=== PATIENT | male | born 1985 | race Caucasian/White ===

== ENCOUNTER → 2021-02-01 09:36 | Outpatient (CLI) | payer MEDICARE, SELFPAY | PROVIDERS: Referring Provider Physician Assistant; Visit Provider Physician Assistant | DX: U07.1 COVID-19 (principal); Z11.52 Encounter for screening for COVID-19 | CPT/HCPCS: 87635; U0005; U0003 ==

== ENCOUNTER 2021-12-02 10:46 | Inpatient (IN) | payer OTHER, SELFPAY ==
[2021-12-02 10:47] VITALS: BP 136/82; PULSE 84; RESP 16; TEMP 36.6; O2SAT 98; BMI 34.0
--- NOTE | 2021-12-02 11:01 | EX.ED.DYSGE1 ---
HPI <LAUREN Hernandez - Last Filed: 12/02/21 12:59> History of Present Illness Chief Complaint: Abd Pain Narrative Narrative: 36-year-old male with no signal medical history other than depression presents the emerge apartment left lower quadrant abdominal pain that started last evening. Patient states the pain is worse with touching or palpation, he has worsening pain with any sort of walking or movement. He does state to have diarrhea however no nausea or vomiting. Patient denies any fevers however states to have subjective chills. Denies any recent antibiotic use, sick contacts. PFSH <LAUREN Hernandez - Last Filed: 12/02/21 12:59> [facility] Medical History Anxiety Depression Smoker Home Medications duloxetine 60 mg capsule,delayed release 60 mg PO DAILY depression 12/02/21 [History Last Taken 12/01/21] ibuprofen 200 mg tablet 800 mg PO DAILY PRN Pain 12/02/21 [History Last Taken 12/01/21] varenicline 1 mg tablet 1 mg PO BID smoking cessation 12/02/21 [History Last Taken 12/01/21] Allergy/AdvReac Type Severity Reaction Status Date / Time naproxen [From Aleve] Allergy Unknown Unknown Verified 11/24/19 12:34 Social History (Updated 11/24/19 @ 14:01 by Bina NESS, THI) Smoking Status: Current every day smoker tobacco type: cigarettes alcohol intake: current alcohol intake frequency: a few times a week Alcohol type: beer ROS <LAUREN Hernandez - Last Filed: 12/02/21 12:59> ROS ED ROS Narrative Constitutional: Negative for fever,weight loss, weakness. Positive for chills Eyes: Negative for vision loss, vision change, double vision ENT: Negative for any sore throat, ear pain, congestion Cardiovascular: Negative for any chest pain, tightness, palpitations Respiratory: Negative for any cough, sputum production, hemoptysis, dyspnea, dyspnea on exertion, orthopnea Gastrointestinal: Negative for any nausea, vomiting, diarrhea, constipation, blood in stool, blood in vomit. Positive left lower quadrant abdominal pain : Negative for any urinary frequency, dysuria, retention, blood in urine Muscle skeletal: Negative for any muscle joint pain, stiffness, myalgias, arthralgias, neck pain, back pain Neurological: Negative for any headache, syncope, numbness or tingling, dizziness Skin: Negative for any rashes, lumps, itching, abrasions, lacerations Psychiatric: Negative for any depression, anxiety, stress, suicidal ideation, homicidal ideation Hematologic: Negative for any easy bruising, excessive bruising, easy bleeding Allergies: Negative for any eczema, hives, rash EXAM <LAUREN Hernandez Last Filed: 12/02/21 12:59> Physical Exam Narrative Exam Narrative: Vital signs reviewed. HEET: Head normocephalic atraumatic, TMs clear bilaterally. Posterior pharynx is clear, moist mucous membranes. Nares clear bilaterally. Neck: Supple with no lymphadenopathy or tenderness. No signs of meningismus, negative jolt sign. Cardiac: Regular rate and rhythm no murmurs gallops or rubs, equal peripheral pulses bilaterally. Respiratory: Lungs clear to auscultation bilaterally. No chest tenderness. Abdomen: Soft, nondistended. No abdominal bruit or pulsatile masses. No hepatosplenomegaly. Patient has tenderness to left lower quadrant Extremities: No peripheral edema, no signs of gross trauma or deformity. Active full range of motion of all extremities. Neuro: Cranial nerves II through XII intact, no focal neurological deficits. Skin: Clean dry and intact with no rash, purpura, petechiae, vesicles or pustules. Backs/flank: No CVA tenderness, no midline spinal tenderness, no deformity. Psych: Normal mood and affect. No SI, HI or acute psychosis. Const Vital Signs: 12/02/21 10:47 12/02/21 12:46 Temperature 98 F Temperature Source Temporal Pulse Rate 84 82 Respiratory Rate 16 18 Blood Pressure 136/82 H 110/63 Blood Pressure Mean 100 78 Pulse Ox 98 96 Oxygen Delivery Method Room Air Room Air Image ED - Body Diagram Man: 1. Left lower quadrant abdominal pain <Dr. Leif Bocanegra DO - Last Filed: 12/02/21 14:41> Physical Exam Const Vital Signs: 12/02/21 10:47 12/02/21 12:46 Temperature 98 F Temperature Source Temporal Pulse Rate 84 82 Respiratory Rate 16 18 Blood Pressure 136/82 H 110/63 Blood Pressure Mean 100 78 Pulse Ox 98 96 Oxygen Delivery Method Room Air Room Air MDM <LAUREN Hernandez - Last Filed: 12/02/21 12:59> [facility] Lab Data Labs: Laboratory Results - last 24 hr 12/02/21 12/02/21 12/02/21 11:15 11:15 12:25 WBC 23.6 H Corrected WBC 19.1 H RBC 4.42 L Hgb 13.3 Hct 38.7 L MCV 87.6 MCH 30.1 MCHC 34.4 RDW Std Deviation 39.3 RDW Coeff of [place] 12.0 Plt Count 282 MPV 10.5 Neut % (Auto) Not Reportable Absolute Neuts (auto) 19.6 H Absolute Lymphs (auto) 1.42 Total Counted 100 Neutrophils % (Manual) 83 H Lymphocytes % (Manual) 6 L Monocytes % (Manual) 11 H Nucleated RBCs/100 WBC Not Reportable Diff Path Review May foll [employer] Platelet Estimate ADEQUATE RBC Morphology NORM C+C Sodium 139 Potassium 3.7 Chloride 106 Carbon Dioxide 28.0 Anion Gap 5 BUN 13 Creatinine 0.89 Estim Creat Clear Calc 137.14 Est GFR (MDRD) Af Amer 123 Est GFR (MDRD) Non-Af 102 BUN/Creatinine Ratio 14.6 Glucose 95 Lactic Acid 1.1 Calcium 8.9 Total Bilirubin 0.80 AST 20 ALT 52 Alkaline Phosphatase 84 Total Protein 7.5 Albumin 4.0 Globulin 3.5 Albumin/Globulin Ratio 1.1 Lipase 70 L Radiography Diagnostic Testing: Clinical Impression(s) from Imaging Studies Abdomen/Pelvis CT 12/02/21 11:25 IMPRESSION: ACUTE DIVERTICULITIS OF THE SIGMOID COLON, no evidence of perforation, no evidence of abscess collection. Electronically Signed: Jordan Jimenez MD at 12:08 EDT , ADDENDUM: 12/02/21 1240 IMPRESSION: undefined Treatment and Re-Evaluation Narrative: Patient appears well, patient appears nontoxic, vital signs are stable. Patient presents emerged part with sudden onset left lower quadrant abdominal pain, chills, is here for evaluation. Patient received a full abdominal work-up, patient CBC shows a white blood count of 19.1, patient's chemistries were unremarkable, patient CT shows acute diverticulitis of the sigmoid colon with evidence of microperforation. Patient was given IV fluids, IV Zofran, IV morphine. Patient is in a position of comfort. However due to the patient's significant diverticulitis, micro prep, patient was given Zosyn IV, he will be admitted to the hospital under Dr. Montes surgeon. Patient is agreeable with the plan, <Dr. Leif Bocanegra, DO - Last Filed: 12/02/21 14:41> [facility] Narrative Medical decision making narrative: Attending note: Patient seen and evaluated with servicer. I perform my own [id number] evaluation. I agree with the plan of work-up. Worsening left lower quadrant abdominal pain since this morning. [place] fine yesterday. Normal bowel movement yesterday. No fevers. Nausea without vomiting. No history of similar. No colonoscopies in the past. No past medical history. No history of kidney stones or diverticulitis. Exam tender lower quadrants bilaterally. Work-up notes a white count of 19,000 normal lipase and liver enzymes. CT scan patient initially read by radiology acute diverticulitis with no perforations or abscess. My review had concerning findings, I rediscussed with radiologist for reread, she does confirm there is a contained microperforation. I did add lactic acid returning normal blood cultures. Patient started on Zosyn. Discussed with surgeon patient history and findings. Will admit to surgical service. Patient and family updated. Lab Data Attestation: I reviewed the patient's lab results. Labs: Laboratory Results - last 24 hr 12/02/21 12/02/21 12/02/21 11:15 11:15 12:25 WBC 23.6 H Corrected WBC 19.1 H RBC 4.42 L Hgb 13.3 Hct 38.7 L MCV 87.6 MCH 30.1 MCHC 34.4 RDW Std Deviation 39.3 RDW Coeff of [place] 12.0 Plt Count 282 MPV 10.5 Neut % (Auto) Not Reportable Absolute Neuts (auto) 19.6 H Absolute Lymphs (auto) 1.42 Total Counted 100 Neutrophils % (Manual) 83 H Lymphocytes % (Manual) 6 L Monocytes % (Manual) 11 H Nucleated RBCs/100 WBC Not Reportable Diff Path Review May foll [employer] Platelet Estimate ADEQUATE RBC Morphology NORM C+C Sodium 139 Potassium 3.7 Chloride 106 Carbon Dioxide 28.0 Anion Gap 5 BUN 13 Creatinine 0.89 Estim Creat Clear Calc 137.14 Est GFR (MDRD) Af Amer 123 Est GFR (MDRD) Non-Af 102 BUN/Creatinine Ratio 14.6 Glucose 95 Lactic Acid 1.1 Calcium 8.9 Total Bilirubin 0.80 AST 20 ALT 52 Alkaline Phosphatase 84 Total Protein 7.5 Albumin 4.0 Globulin 3.5 Albumin/Globulin Ratio 1.1 Lipase 70 L Radiography Diagnostic Testing: Clinical Impression(s) from Imaging Studies Abdomen/Pelvis CT 12/02/21 11:25 IMPRESSION: ACUTE DIVERTICULITIS OF THE SIGMOID COLON, no evidence of perforation, no evidence of abscess collection. Electronically Signed: Jordan Jimenez MD at 12:08 EDT , ADDENDUM: 12/02/21 1240 IMPRESSION: undefined Discharge Plan Dx/Rx/DC Orders Clinical Impression: Acute diverticulitis of intestine, Leukocytosis, Abdominal pain, Perforation of sigmoid colon due to diverticulitis Disposition Disposition: Acute Care [facility]
[2021-12-02] MEDS: Ondansetron 4 MG/2 ML Vial IV ×2 (11:11→21:07)
[2021-12-02] MEDS: 0.9% Normal Saline 1,000 ML 1000 ML IV (11:11)
[2021-12-02] MEDS: Morphine 4 MG/ML Syringe IV ×2 (11:11→13:12)
[2021-12-02 11:24] LABS: Hematocrit 38.7 % (40-54); Hemoglobin 13.3 g/dL (13.0-16.5); Mean Corp Hgb Conc 34.4 g/dL (32-36); Mean Corpuscular Hgb 30.1 pg (27.0-32.0); Mean Corpuscular Volume 87.6 fL (80-94); Mean Platelet Vol. 10.5 fl (6.2-12.0); POSITIVE DIFFERENTIAL YES; Platelet Count 282 K/mm3 (150-450); RBC Distribution Width SD 39.3 fl (35.1-43.9); Red Blood Count 4.42 M/mm3 (4.6-6.2)
--- NOTE | 2021-12-02 11:25 | CT_ITS ---
INDICATION: PAIN EXAMINATION: CT ABDOMEN AND PELVIS WITH CONTRAST - CT Abdomen And Pelvis W/ Contrast Injection TECHNIQUE: Helically acquired images were obtained of the abdomen and pelvis following IV contrast. A radiation dose optimization technique was used for this scan. IV Contrast dosage and agent: 100 mL of [id number]. Oral contrast: None. COMPARISON: None. FINDINGS: LOWER CHEST: Lung bases are clear. No cardiomegaly or pericardial effusion. LIVER: Homogeneous. No focal mass. GALLBLADDER AND BILIARY TREE: No calcified gallstones. No gallbladder distension or wall edema. No intra- or extrahepatic biliary ductal dilation. PANCREAS: No focal cystic or solid mass. SPLEEN: Normal size without focal cystic or solid mass. ADRENAL GLANDS: No nodules. KIDNEYS AND URETERS: Normal renal size and position. No hydronephrosis. PERITONEUM: No ascites or free air. No other fluid collection. BOWEL: The stomach is unremarkable, fluid-filled slightly prominent loops of small bowel are visualized. Stool visualized in the large bowel, extensive stranding visualized surrounding the sigmoid colon consistent with acute diverticulitis, no evidence of perforation is visualized, no evidence of localized abscess collection is seen. The appendix is visualized and is unremarkable. LYMPH NODES: No enlarged mesenteric or retroperitoneal lymph nodes. VESSELS: Aorta is non-dilated. URINARY BLADDER: Unremarkable. REPRODUCTIVE ORGANS: No pelvic masses. ABDOMINAL WALL: Small bilateral inguinal hernia visualized, bilateral inguinal lymphadenopathy is seen. BONES: No lytic or blastic abnormality. CT/Abdomen/Pelvis W IV Cont ONLY IMPRESSION: ACUTE DIVERTICULITIS OF THE SIGMOID COLON, no evidence of perforation, no evidence of abscess collection. Electronically Signed: Jordan Jimenez MD at 12:08 EDT Reading Location ID and State: [facility] / [place] Tel , Service support ,
[2021-12-02 11:27] LABS: Differential Indicated MANUAL DIFF
[2021-12-02 11:40] LABS: ALB/GLOB Ratio 1.1 RATIO (0.9-2.4); AST(SGOT) 20 U/L (15-37); Alanine Aminotransfer ALT/SGPT 52 U/L (16-61); Alkaline Phosphatase 84 U/L (45-117); Anion Gap 5 (5-15); BUN 13 mg/dL (7-18); BUN/Creat Ratio 14.6 RATIO (10-20); Calcium,Total 8.9 mg/dL (8.5-10.1); Chloride 106 mmol/L (98-107); Creatinine, Serum 0.89 mg/dL (0.70-1.30); EST Glomerular Filtration Rate 102 mL/min (>60); Est Glom Filt Rate - Afr Amer 123 mL/min (>60); Estimated Creatinine Clearance 137.14 ml/min; Globulin 3.5 g/dL (2.2-4.2); Glucose 95 mg/dL (74-106); Lipase 70 U/L (73-393); Potassium 3.7 mmol/L (3.5-5.1); Protein, Total 7.5 g/dL (6.4-8.2); Sodium Level 139 mmol/L (136-145)
[2021-12-02 11:59] LABS: Lymphocyte 6 % (19-41); Monocyte 11 % (0-10); Neutrophil-Segmented 83 % (47-70); Platelet Estimate ADEQUATE (ADEQ); Total Cells Counted 100 (MANUAL DIFF)
[2021-12-02 12:03] LABS: Corrected WBC 19.1 K/mm3 (4.4-11.0)
[2021-12-02 12:04] LABS: Red Cell Morphology NORM C+C NORMAL (NORM C&C)
[2021-12-02 12:15] LABS: Absolute Lymphocyte Count 1.42 X10^3/uL (0.83-4.51); Absolute Neutrophil Count 19.6 X10^3/uL (2.0-7.7); White Blood Count 23.6 K/mm3 (4.4-11.0)
[2021-12-02 12:46] VITALS: BP 110/63; PULSE 82; RESP 18; O2SAT 96
[2021-12-02 13:05] LABS: Lactic Acid 1.1 mmol/L (0.4-1.9)
[2021-12-02 13:12] VITALS: BP 110/63; PULSE 82; RESP 18; TEMP 36.7; O2SAT 96
[2021-12-02 14:00] VITALS: RESP 18
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
[2021-12-02] MEDS: 0.9% Normal Saline 1,000 ML 120 ML IV ×2 (15:33→21:07)
[2021-12-02 15:38] VITALS: BP 107/61; PULSE 70; RESP 16; TEMP 36.7; O2SAT 100
[2021-12-02 16:16] VITALS: BMI 33.9
[2021-12-02] MEDS: Morphine 2 MG/ML Syringe IV ×2 (18:19→21:07)
[2021-12-02 21:00] VITALS: BP 131/76; PULSE 72; RESP 16; TEMP 37.3; O2SAT 99
[2021-12-02] MEDS: 0.9% Saline Lock 10 ML Syringe IV (21:07)
[2021-12-03] MEDS: oxyCODONE 5 MG Tablet PO ×3 (01:10→21:24)
[2021-12-03] MEDS: Acetaminophen 325 MG Tablet 650 MG PO ×2 (01:11→07:58)
[2021-12-03 01:50] VITALS: BP 109/65; PULSE 74; RESP 16; TEMP 37.3; O2SAT 100
[2021-12-03] MEDS: 0.9% Normal Saline 1,000 ML 120 ML IV ×2 (05:14→14:14)
[2021-12-03 05:18] LABS: Absolute Neutrophil Count 13.2 X10^3/uL (2.0-7.7); Basophil# 0.06 X10^3/uL; Basophil% 0.4 % (0-1); Eosinophil# 0.15 X10^3/uL; Eosinophils% 0.9 % (0-5); Hematocrit 34.2 % (40-54); Hemoglobin 11.7 g/dL (13.0-16.5); Lymphocyte % 11.3 % (19-41); Mean Corp Hgb Conc 34.2 g/dL (32-36); Mean Corpuscular Hgb 30.2 pg (27.0-32.0); Mean Corpuscular Volume 88.1 fL (80-94); Mean Platelet Vol. 10.6 fl (6.2-12.0); Monocyte% 8.9 % (0-10); NRBC Flagged by Analyzer 0 % (0-5); Neutrophil # 13.21 X10^3/uL (2.7-7.7); Neutrophil % 78.2 % (47-70); Platelet Count 282 K/mm3 (150-450); RBC Distribution Width SD 39.1 fl (35.1-43.9); Red Blood Count 3.88 M/mm3 (4.6-6.2); White Blood Count 16.9 K/mm3 (4.4-11.0)
[2021-12-03 05:50] LABS: Anion Gap 4 (5-15); BUN 10 mg/dL (7-18); BUN/Creat Ratio 12.1 RATIO (10-20); Calcium,Total 8.3 mg/dL (8.5-10.1); Chloride 105 mmol/L (98-107); Creatinine, Serum 0.83 mg/dL (0.70-1.30); EST Glomerular Filtration Rate 112 mL/min (>60); Est Glom Filt Rate - Afr Amer 135 mL/min (>60); Estimated Creatinine Clearance 147.05 ml/min; Glucose 95 mg/dL (74-106); Potassium 3.5 mmol/L (3.5-5.1); Sodium Level 138 mmol/L (136-145)
[2021-12-03 07:56] VITALS: BP 123/71; PULSE 71; RESP 14; TEMP 36.3; O2SAT 97
[2021-12-03] MEDS: Morphine 2 MG/ML Syringe IV ×3 (07:58→20:07)
[2021-12-03] MEDS: 0.9% Saline Lock 10 ML Syringe IV ×2 (07:58→12:47)
--- NOTE | 2021-12-03 09:07 | PN.SURG_ITS ---
Subjective Subjective Patient states pain is about the same. Denies any nausea or vomiting. Objective Data Objective Data Vital Signs: Vital Signs Temp Pulse Resp BP Pulse Ox O2 Del Method 97.3 F L 71 14 123/71 H 97 Room Air 12/03/21 07:56 12/03/21 07:56 12/03/21 07:56 12/03/21 07:56 12/03/21 07:56 12/03/21 07:56 Oxygen Delivery Method Room Air Weight: 271 lb 9.752 oz Body Mass Index (BMI) 33.9 Intake & Output: Intake and Output for Last 24 Hours 12/01/21 12/02/21 12/03/21 23:59 23:59 23:59 Intake Total 1718 / 1718 1084.75 / 1084.75 Balance 1718 / 1718 1084.75 / 1084.75 Lab / Micro Data Result Diagrams: 12/03/21 04:53 12/03/21 04:53 Labs: Laboratory Results - last 24 hr 12/02/21 11:15: WBC 23.6 H, Corrected WBC 19.1 H, RBC 4.42 L, Hgb 13.3, Hct 38.7 L, MCV 87.6, MCH 30.1, MCHC 34.4, RDW Std Deviation 39.3, RDW Coeff of [place] 12.0, Plt Count 282, MPV 10.5, Neut % (Auto) Not Reportable, Absolute Neuts (auto) 19.6 H, Absolute Lymphs (auto) 1.42, Total Counted 100, Neutrophils % (Manual) 83 H, Lymphocytes % (Manual) 6 L, Monocytes % (Manual) 11 H, Nucleated RBCs/100 WBC Not Reportable, Diff Path Review May foll, David Rods [employer]OVER INSTALLER, Platelet Estimate A DEQUATE, RBC Morphology NORM C+C 12/02/21 11:15: Sodium 139, Potassium 3.7, Chloride 106, Carbon Dioxide 28.0, Anion Gap 5, BUN 13, Creatinine 0.89, Estim Creat Clear Calc 137.14, Est GFR (MDRD) Af Amer 123, Est GFR (MDRD) Non-Af 102, BUN/Creatinine Ratio 14.6, Glucose 95, Calcium 8.9, Total Bilirubin 0.80, AST 20, ALT 52, Alkaline Phosphatase 84, Total Protein 7.5, Albumin 4.0, Globulin 3.5, Albumin/Globulin Ratio 1.1, Lipase 70 L 12/02/21 12:25: Lactic Acid 1.1 12/03/21 04:53: WBC 16.9 H, RBC 3.88 L, Hgb 11.7 L, Hct 34.2 L, MCV 88.1, MCH 30.2, MCHC 34.2, RDW Std Deviation 39.1, RDW Coeff of [place] 12.0, Plt Count 282, MPV 10.6, Immature Gran % (Auto) 0.300, Neut % (Auto) 78.2 H, Lymph % (Auto) 11.3 L, [place] % (Auto) 8.9, Eos % (Auto) 0.9, Baso % (Auto) 0.4, Absolute Neuts (auto) 13.2 H, Absolute Lymphs (auto) 1.90, Nucleated RBC % 0 12/03/21 04:53: Sodium 138, Potassium 3.5, Chloride 105, Carbon Dioxide 29.0, Anion Gap 4 L, BUN 10, Creatinine 0.83, Estim Creat Clear Calc 147.05, Est GFR ( MDRD) Af Amer 135, Est GFR (MDRD) Non-Af 112, BUN/Creatinine Ratio 12.1, Glucose 95, Calcium 8.3 L Radiography Diagnostic Testing: Radiology Impression Abdomen/Pelvis CT 12/02/21 11:25 IMPRESSION: ACUTE DIVERTICULITIS OF THE SIGMOID COLON, no evidence of perforation, no evidence of abscess collection. Electronically Signed: Jordan Jimenez MD at 12:08 EDT Reading Location ID and State: [facility] / [place] Tel , Service support , ADDENDUM: 12/02/21 1240 IMPRESSION: undefined Physical Exam Const alert, oriented x3 and no apparent distress Resp normal respiratory effort Cardio regular rate GI soft to palpation; Negative for non-distended Palpation: tender suprapubic (, Mild rebound, no guarding); Negative for guarding Extremity no clubbing, cyanosis or edema Psych mental status grossly normal Assessment & Plan Assessment/Plan (1) Perforation of sigmoid colon due to diverticulitis: (2) Leukocytosis: PLAN: Plan Continues conservative management n.p.o./IV fluids until pain has greatly improved/resolved Patient's white blood cell count is still 17-19 from 23. Continue IV Zosyn. Encourage ambulation, continue pain control Dr. Patel will be covering this weekend. Daniella Montes M.D. Pager: [phone] [facility] [address] [place] [address], [facility], [address] [place] [id number] Office: [phone]
--- NOTE | 2021-12-03 10:00 | CASEMGMT ---
RN AMANDA Face to Face with patient for initial transition planning/care coordination assessment. RN CM introduced self and role at [facility]. Patient lying in bed, alert and oriented. Patient willing to participate in assessment and is able to answer all questions appropriately. Care providers, pharmacy, and demographics verified. Patient wishes to discharge home, denies need for home health at this time. Patient states he has no further needs or concerns at this time. CM to follow for discharge planning needs that may arise. PCP: Rac[facility] Specialists: none Preferred Pharmacy: [facility] Insurance: Dex[employer] Prescription Benefit: yes Living Will/HPOA: none LNOK: father Living Arrangements: Patient lives with father in a 3 story home. Patient states he is independent and able to ambulate stairs. Transportation: self, father DME/HHC: Patient denies DME or previous HHC Disposition Plan: Patient to discharge home with family support and follow-up plans. Lin SMITHN, RN, CM
[2021-12-03 13:14] LABS: Pathologist Review Reviewed
[2021-12-03 15:00] VITALS: BP 116/62; PULSE 70; RESP 16; TEMP 36.9; O2SAT 98
[2021-12-03 20:07] VITALS: BP 134/56; PULSE 72; RESP 16; TEMP 36.7; O2SAT 97
[2021-12-03] MEDS: 0.9% Normal Saline 1,000 ML 100 ML IV (23:39)
[2021-12-04 02:10] VITALS: BP 118/68; PULSE 74; RESP 16; TEMP 37; O2SAT 96
[2021-12-04] MEDS: oxyCODONE 5 MG Tablet PO ×3 (05:49→17:22)
[2021-12-04 06:23] LABS: Absolute Lymphocyte Count 1.22 X10^3/uL (0.83-4.51); Absolute Neutrophil Count 16.5 X10^3/uL (2.0-7.7); Basophil# 0.05 X10^3/uL; Basophil% 0.2 % (0-1); Eosinophils% 0.5 % (0-5); Hematocrit 34.7 % (40-54); Hemoglobin 11.4 g/dL (13.0-16.5); Lymphocyte # 1.22 X10^3/ul (0.83-4.51); Lymphocyte % 6.1 % (19-41); Mean Corp Hgb Conc 32.9 g/dL (32-36); Mean Corpuscular Hgb 29.2 pg (27.0-32.0); Mean Corpuscular Volume 88.7 fL (80-94); Monocyte# 2.12 X10^3/uL; Monocyte% 10.5 % (0-10); NRBC Flagged by Analyzer 0 % (0-5); Neutrophil % 82.2 % (47-70); POSITIVE DIFFERENTIAL YES; Platelet Count 230 K/mm3 (150-450); RBC Distribution Width CV 11.9 % (11.6-14.6); RBC Distribution Width SD 38.4 fl (35.1-43.9); Red Blood Count 3.91 M/mm3 (4.6-6.2); White Blood Count 20.1 K/mm3 (4.4-11.0)
[2021-12-04 06:45] LABS: Differential Indicated SCAN CRITERIA MET
[2021-12-04 06:51] LABS: Differential Comment SCANNED
[2021-12-04 06:56] LABS: Anion Gap 3 (5-15); BUN 11 mg/dL (7-18); BUN/Creat Ratio 13.6 RATIO (10-20); Calcium,Total 8.4 mg/dL (8.5-10.1); Chloride 105 mmol/L (98-107); Creatinine, Serum 0.81 mg/dL (0.70-1.30); EST Glomerular Filtration Rate 114 mL/min (>60); Est Glom Filt Rate - Afr Amer 138 mL/min (>60); Estimated Creatinine Clearance 150.69 ml/min; Glucose 93 mg/dL (74-106); Potassium 3.5 mmol/L (3.5-5.1); Sodium Level 136 mmol/L (136-145)
[2021-12-04 10:00] VITALS: BP 122/85; PULSE 67; RESP 16; TEMP 37.1; O2SAT 100
[2021-12-04] MEDS: 0.9% Normal Saline 1,000 ML 100 ML IV ×2 (10:11→20:27)
--- NOTE | 2021-12-04 10:26 | PN.SURG_ITS ---
Subjective Subjective patient states that he feels much improved since admission has been passing flatus doesn't really feel hungry but is thirsty Objective Data Objective Data Vital Signs: Vital Signs Temp Pulse Resp BP Pulse Ox O2 Del Method 98.6 F 74 16 118/68 96 Room Air 12/04/21 02:10 12/04/21 02:10 12/04/21 02:10 12/04/21 02:10 12/04/21 02:10 12/04/21 02:10 Oxygen Delivery Method Room Air Weight: 123.2 kg Body Mass Index (BMI) 33.9 Intake & Output: Intake and Output for Last 24 Hours 12/02/21 12/03/21 12/04/21 23:59 23:59 23:59 Intake Total 1718 / 1718 3227.75 / 3227.75 1168.25 / 1168.25 Balance 1718 / 1718 3227.75 / 3227.75 1168.25 / 1168.25 Lab / Micro Data Result Diagrams: 12/04/21 05:32 12/04/21 05:32 Labs: Laboratory Results - last 24 hr 12/02/21 11:15: Diff Path Review Reviewed 12/04/21 05:32: WBC 20.1 H, RBC 3.91 L, Hgb 11.4 L, Hct 34.7 L, MCV 88.7, MCH 29.2, MCHC 32.9, RDW Std Deviation 38.4, RDW Coeff of [place] 11.9, Plt Count 230, MPV 11.0, Immature Gran % (Auto) 0.500, Neut % (Auto) 82.2 H, Lymph % (Auto) 6.1 L, [place] % (Auto) 10.5 H, Eos % (Auto) 0.5, Baso % (Auto) 0.2, Absolute Neuts (auto) 16.5 H, Absolute Lymphs (auto) 1.22, Nucleated RBC % 0, Differential Comment SCANNED, Diff Path Review August12/04/21 05:32: Sodium 136, Potassium 3.5, Chloride 105, Carbon Dioxide 28.0, Anion Gap 3 L, BUN 11, Creatinine 0.81, Estim Creat Clear Calc 150.69, Est GFR (MDRD) Af Amer 138, Est GFR (MDRD) Non-Af 114, BUN/Creatinine Ratio 13.6, Glucose 93, Calcium 8.4 L Physical Exam Const alert and oriented x3 General Appearance: cooperative Neck supple Resp normal respiratory effort Effort and Inspection: able to speak in complete sentences GI GI Narrative: abdomen is soft but tender in left lower quadrant but no guarding Assessment & Plan Assessment/Plan (1) Perforation of sigmoid colon due to diverticulitis: PLAN: patient is clinically improving Continue antibiotics start on sips of clear liquids
[2021-12-04 14:30] VITALS: BP 106/67; PULSE 70; RESP 16; TEMP 37.3; O2SAT 98
[2021-12-04 20:30] VITALS: BP 110/57; PULSE 65; RESP 16; TEMP 37; O2SAT 100
[2021-12-05 02:30] VITALS: BP 118/66; PULSE 63; RESP 16; TEMP 36.6; O2SAT 97
[2021-12-05] MEDS: oxyCODONE 5 MG Tablet PO (05:33)
[2021-12-05] MEDS: 0.9% Normal Saline 1,000 ML 100 ML IV ×2 (05:34→15:59)
[2021-12-05 06:25] LABS: Absolute Lymphocyte Count 1.51 X10^3/uL (0.83-4.51); Basophil# 0.05 X10^3/uL; Basophil% 0.4 % (0-1); Eosinophil# 0.35 X10^3/uL; Eosinophils% 2.8 % (0-5); Hematocrit 34.3 % (40-54); Hemoglobin 11.5 g/dL (13.0-16.5); Lymphocyte # 1.51 X10^3/ul (0.83-4.51); Lymphocyte % 12.2 % (19-41); Mean Corp Hgb Conc 33.5 g/dL (32-36); Mean Corpuscular Hgb 29.6 pg (27.0-32.0); Mean Corpuscular Volume 88.2 fL (80-94); Mean Platelet Vol. 10.9 fl (6.2-12.0); Monocyte# 1.48 X10^3/uL; Monocyte% 11.9 % (0-10); NRBC Flagged by Analyzer 0 % (0-5); Neutrophil # 8.95 X10^3/uL (2.7-7.7); Neutrophil % 72.1 % (47-70); Platelet Count 267 K/mm3 (150-450); RBC Distribution Width CV 11.9 % (11.6-14.6); Red Blood Count 3.89 M/mm3 (4.6-6.2); White Blood Count 12.4 K/mm3 (4.4-11.0)
[2021-12-05 06:58] LABS: Anion Gap 5 (5-15); BUN 8 mg/dL (7-18); BUN/Creat Ratio 10.1 RATIO (10-20); Calcium,Total 8.8 mg/dL (8.5-10.1); Chloride 104 mmol/L (98-107); Creatinine, Serum 0.79 mg/dL (0.70-1.30); EST Glomerular Filtration Rate 118 mL/min (>60); Est Glom Filt Rate - Afr Amer 142 mL/min (>60); Glucose 91 mg/dL (74-106); Potassium 3.5 mmol/L (3.5-5.1); Sodium Level 136 mmol/L (136-145)
[2021-12-05 08:00] VITALS: PULSE 77; RESP 18; O2SAT 100
[2021-12-05 08:30] VITALS: BP 142/79; PULSE 77; RESP 18; TEMP 36.6; O2SAT 100
--- NOTE | 2021-12-05 09:53 | PCM.PN.SRG ---
Subjective Subjective pleasant patient today - has not ambulated much in hallways - I have encouraged him to do so states that pain is same as yesterday passing flatus Objective Data Objective Data Vital Signs: Vital Signs Temp Pulse Resp BP Pulse Ox O2 Del Method 98 F 77 18 142/79 H 100 Room Air 12/05/21 08:30 12/05/21 08:30 12/05/21 08:30 12/05/21 08:30 12/05/21 08:30 12/05/21 08:30 Oxygen Delivery Method Room Air Weight: 123.2 kg Body Mass Index (BMI) 33.9 Intake & Output: Intake and Output for Last 24 Hours 12/03/21 12/04/21 12/05/21 23:59 23:59 23:59 Intake Total 3227.75 / 3227.75 2648.25 / 2648.25 961.67 / 961.67 Balance 3227.75 / 3227.75 2648.25 / 2648.25 961.67 / 961.67 Lab / Micro Data Attestation: I reviewed the patient's lab results. Result Diagrams: 12/05/21 05:46 12/05/21 05:46 Labs: Laboratory Results - last 24 hr 12/05/21 05:46: WBC 12.4 H, RBC 3.89 L, Hgb 11.5 L, Hct 34.3 L, MCV 88.2, MCH 29.6, MCHC 33.5, RDW Std Deviation 38.0, RDW Coeff of [place] 11.9, Plt Count 267, MPV 10.9, Immature Gran % (Auto) 0.600, Neut % (Auto) 72.1 H, Lymph % (Auto) 12.2 L, [place] % (Auto) 11.9 H, Eos % (Auto) 2.8, Baso % (Auto) 0.4, Absolute Neuts (auto) 9.0 H, Absolute Lymphs (auto) 1.51, Nucleated RBC % 0 12/05/21 05:46: Sodium 136, Potassium 3.5, Chloride 104, Carbon Dioxide 27.0, Anion Gap 5, BUN 8, Creatinine 0.79, Estim Creat Clear Calc 154.50, Est GFR (MDRD) Af Amer 142, Est GFR (MDRD) Non-Af 118, BUN/Creatinine Ratio 10.1, Glucose 91, Calcium 8.8 Micro: Microbiology 12/02/21 12:40 Blood Culture (Wb) - Anticubital Right Blood Culture - Preliminary No growth in 48 hours. 12/02/21 12:25 Blood Culture (Wb) - Anticubital Right Blood Culture - Preliminary No growth in 48 hours. Physical Exam Const alert and oriented x3 General Appearance: cooperative Neck supple Resp normal respiratory effort Effort and Inspection: able to speak in complete sentences GI GI Narrative: abdomen is soft but tender to palpationt of left lower quadrant Assessment & Plan Assessment/Plan (1) Perforation of sigmoid colon due to diverticulitis: PLAN: patient is clinically stable - no major changes Continue present therapy
[2021-12-05 14:00] VITALS: PULSE 80; RESP 18; O2SAT 100
[2021-12-05 14:25] VITALS: BP 125/65; PULSE 80; RESP 18; TEMP 36.6; O2SAT 100
[2021-12-05 20:20] VITALS: BP 137/89; PULSE 62; RESP 16; TEMP 36.8; O2SAT 100
[2021-12-05] MEDS: Acetaminophen 325 MG Tablet 650 MG PO (21:07)
[2021-12-06] MEDS: 0.9% Normal Saline 1,000 ML 100 ML IV (01:59)
[2021-12-06 02:20] VITALS: BP 117/74; PULSE 61; RESP 16; TEMP 36.6; O2SAT 99
[2021-12-06 06:47] LABS: Absolute Lymphocyte Count 1.39 X10^3/uL (0.83-4.51); Absolute Neutrophil Count 3.9 X10^3/uL (2.0-7.7); Basophil# 0.06 X10^3/uL; Basophil% 0.9 % (0-1); Eosinophil# 0.42 X10^3/uL; Eosinophils% 6.1 % (0-5); Hematocrit 31.2 % (40-54); Hemoglobin 10.4 g/dL (13.0-16.5); Lymphocyte # 1.39 X10^3/ul (0.83-4.51); Lymphocyte % 20.2 % (19-41); Mean Corp Hgb Conc 33.3 g/dL (32-36); Mean Corpuscular Hgb 28.7 pg (27.0-32.0); Mean Corpuscular Volume 86.2 fL (80-94); Mean Platelet Vol. 11.2 fl (6.2-12.0); Monocyte# 1.04 X10^3/uL; Monocyte% 15.1 % (0-10); NRBC Flagged by Analyzer 0 % (0-5); Neutrophil # 3.94 X10^3/uL (2.7-7.7); Neutrophil % 57.1 % (47-70); Platelet Count 222 K/mm3 (150-450); RBC Distribution Width CV 11.7 % (11.6-14.6); RBC Distribution Width SD 36.9 fl (35.1-43.9); Red Blood Count 3.62 M/mm3 (4.6-6.2); White Blood Count 6.9 K/mm3 (4.4-11.0)
--- NOTE | 2021-12-06 08:33 | PCM.PN.SRG ---
Subjective Subjective Patient tolerated clear diet did have a transitional diet this morning which he did also tolerate. States he may have some abdominal pain at 1/[address] a [address] otherwise denies abdominal pain Objective Data Objective Data Vital Signs: Vital Signs Temp Pulse Resp BP Pulse Ox O2 Del Method 97.8 F 61 16 117/74 99 Room Air 12/06/21 02:20 12/06/21 02:20 12/06/21 02:20 12/06/21 02:20 12/06/21 02:20 12/06/21 02:20 Oxygen Delivery Method Room Air Weight: 271 lb 9.752 oz Body Mass Index (BMI) 33.9 Intake & Output: Intake and Output for Last 24 Hours 12/04/21 12/05/21 12/06/21 23:59 23:59 23:59 Intake Total 2648.25 / 2648.25 3261.67 / 3261.67 1050 / 1050 Balance 2648.25 / 2648.25 3261.67 / 3261.67 1050 / 1050 Lab / Micro Data Result Diagrams: 12/06/21 06:00 12/05/21 05:46 Labs: Laboratory Results - last 24 hr 12/06/21 06:00: WBC 6.9, RBC 3.62 L, Hgb 10.4 L, Hct 31.2 L, MCV 86.2, MCH 28.7, MCHC 33.3, RDW Std Deviation 36.9, RDW Coeff of [place] 11.7, Plt Count 222, MPV 11.2, Immature Gran % (Auto) 0.600, Neut % (Auto) 57.1, Lymph % (Auto) 20.2, [place] % (Auto) 15.1 H, Eos % (Auto) 6.1 H, Baso % (Auto) 0.9, Absolute Neuts (auto) 3.9, Absolute Lymphs (auto) 1.39, Nucleated RBC % 0 Micro: Microbiology 12/02/21 12:40 Blood Culture (Wb) - Anticubital Right Blood Culture - Preliminary No growth in 48 hours. 12/02/21 12:25 Blood Culture (Wb) - Anticubital Right Blood Culture - Preliminary No growth in 48 hours. Physical Exam Const oriented x3 and no apparent distress Resp normal respiratory effort Cardio regular rate GI GI Narrative: Abdomen soft, nondistended, nontender, no peritoneal signs Assessment & Plan Assessment/Plan (1) Perforation of sigmoid colon due to diverticulitis: (2) Leukocytosis: PLAN: Plan Patient is doing well tolerated clears as well as transitional okay to [place] home. Leukocytosis resolved continue on Augmentin for additional 6 days twice daily. Follow-up in office in about a week. Daniella Montes M.D. Pager: [phone] [facility] [address] [place] [address], [address] [place] [address] Office: [phone]
[2021-12-06 09:25] VITALS: BP 128/69; PULSE 72; RESP 16; TEMP 36.7; O2SAT 97
[2021-12-06] MEDS: DULoxetine Hcl 60 MG Capsule PO (11:01)
--- NOTE | 2021-12-06 11:01 | DCINST_ITS ---
Discharge Instructions Diet Discharge Diet: - (Transitional diet/low fiber for about 4 weeks) Activity Discharge Activity: Return to Normal Activity Follow Up Care Please Follow Up With: Daniella Montes MD When: 1 week call office for appointment Test Results: Test results from this visit will be discussed in further detail at your follow- up appointment, if applicable. Discharge Plan Admission Admit Date/Time: 12/02/21 12:52 Attending Provider: Daniella Montes Primary Care Provider: Alec Clement Discharge Orders/Prescriptions Prescriptions: New amoxicillin-pot clavulanate 875-125 mg tablet 1 tab PO BID Qty: 12 0RF Continued duloxetine 60 mg capsule,delayed release(DR/EC) 60 mg PO DAILY ibuprofen 200 mg Tablet 800 mg PO DAILY PRN (Reason: Pain) varenicline 1 mg tablet 1 mg PO BID Label Comments: TAKE 1 TABLET BY MOUTH TWICE A DAY FOR 12 WEEKS Referrals / Follow Up: Alec Clement DO [Primary Care Provider] - Disposition Disposition (needs filled in before D/C Order can be placed): Home, Self Care
--- NOTE | 2021-12-06 11:07 | PCM.DC.SUM ---
Providers Date of Admission: 12/02/21 Primary Care Physician: Dr. Alec Clement DO Reason For Visit: ACUTE DIVERTICULITIS Diagnosis Discharge Diagnosis (1) Perforation of sigmoid colon due to diverticulitis: Status: Acute Code(s): K57.20 - Diverticulitis of large intestine with perforation and abscess without bleeding (2) Leukocytosis: Status: Acute Code(s): D72.829 - Elevated white blood cell count, unspecified Plan Patient is doing well tolerated clears as well as transitional okay to [place] home. Leukocytosis resolved continue on Augmentin for additional 6 days twice daily. Follow-up in office in about a week. Daniella Montes M.D. Pager: [phone] [facility] [address] [place] [address], [facility], [address] [place] [id number] Office: [phone] Medications at Discharge Home Medications duloxetine 60 mg capsule,delayed release 60 mg PO DAILY depression 12/02/21 ibuprofen 200 mg tablet 800 mg PO DAILY PRN Pain 12/02/21 varenicline 1 mg tablet 1 mg PO BID smoking cessation 12/02/21 amoxicillin 875 mg-potassium clavulanate 125 mg tablet 1 tab PO BID #12 tabs 12/06/21 Hospital Course Operations None Procedures None Summary of Care Provided Minutes Spent on Discharge: 15 Hospital Course: Patient was admitted to the hospital for conservative management of perforated sigmoid diverticulitis. Patient was kept n.p.o./IV fluids/Zosyn IV along with pain control until patient's pain resolved and patient was started on a diet. Once patient tolerated clears with no issues was transition to a low low fiber/transitional diet. Patient was able to tolerate this well was able to be DC'd home. Along this time patient's white blood cell count also back to normal range on antibiotics patient was sent home with additional days of Augmentin. Physical Exam Const oriented x3 and no apparent distress Resp normal respiratory effort Cardio regular rate GI GI Narrative: Abdomen soft, nondistended, nontender, no peritoneal signs Weight / BMI Weight Weight: 271 lb 9.752 oz Body Mass Index (BMI) 33.9 ABG / Lab / Microbiology Data Result Diagrams: 12/06/21 06:00 12/05/21 05:46 Laboratory: Laboratory Results - last 24 hr 12/06/21 06:00: WBC 6.9, RBC 3.62 L, Hgb 10.4 L, Hct 31.2 L, MCV 86.2, MCH 28.7, MCHC 33.3, RDW Std Deviation 36.9, RDW Coeff of [place] 11.7, Plt Count 222, MPV 11.2, Immature Gran % (Auto) 0.600, Neut % (Auto) 57.1, Lymph % (Auto) 20.2, [place] % (Auto) 15.1 H, Eos % (Auto) 6.1 H, Baso % (Auto) 0.9, Absolute Neuts (auto) 3.9, Absolute Lymphs (auto) 1.39, Nucleated RBC % 0 Microbiology: Microbiology 12/02/21 12:40 Blood Culture (Wb) - Anticubital Right Blood Culture - Preliminary No growth in 48 hours. 12/02/21 12:25 Blood Culture (Wb) - Anticubital Right Blood Culture - Preliminary No growth in 48 hours. D/C Instructions Discharge Diet: - (Transitional diet/low fiber for about 4 weeks) Please Follow Up With: Daniella Montes MD When: 1 week call office for appointment Meaningful Use Info Meaningful Use Diagnoses (Choose all that apply): None applicable Discharge Plan Admission Admit Date/Time: 12/02/21 12:52 Attending Provider: Daniella Montes Primary Care Provider: Alec Clement Discharge Orders/Prescriptions Prescriptions: New amoxicillin-pot clavulanate 875-125 mg tablet 1 tab PO BID Qty: 12 0RF Continued duloxetine 60 mg capsule,delayed release(DR/EC) 60 mg PO DAILY ibuprofen 200 mg Tablet 800 mg PO DAILY PRN (Reason: Pain) varenicline 1 mg tablet 1 mg PO BID Label Comments: TAKE 1 TABLET BY MOUTH TWICE A DAY FOR 12 WEEKS Referrals / Follow Up: Alec Clement DO [Primary Care Provider] - Disposition Disposition (needs filled in before D/C Order can be placed): Home, Self Care Charges/Coding Visit Charges Inpatient E&M: 16230 [facility] H[facility]
[2021-12-06 11:29] VITALS: BP 132/76; PULSE 65; RESP 16; TEMP 36.6; O2SAT 97
[2021-12-06 12:22] LABS: Pathologist Review Reviewed
== END 2021-12-06 11:40 | disposition home or self-care (01) | DRG 392 ==
LOC: ED 12:59 → MS3 15:40
PROVIDERS: Nurse Practitioner; Admitting Provider Surgery; Emergency Provider Emergency Medicine; PCP Student in an Organized Health Care Education/Training Program; Visit Provider Surgery
DX: K57.20 Diverticulitis of large intestine with perforation and abscess without bleeding (principal); D72.829 Elevated white blood cell count, unspecified; F17.210 Nicotine dependence, cigarettes, uncomplicated; I10 Essential (primary) hypertension; F41.9 Anxiety disorder, unspecified; F32.A Depression, unspecified
CPT/HCPCS: 36415; 74177; 80048; 80053; 83605; 83690; 85025; 87040; 99251; 99284; 99406; J7030; J7050; Q9967; A4216; G0463; J2405

== ENCOUNTER 2022-01-31 08:20 | Day surgery (SDC) | payer OTHER, SELFPAY ==
--- NOTE | 2022-01-31 08:32 | HP.PCM_ITS ---
HPI - General HPI Narrative DUDLEY BLACK, is a 36 M who presents for colonoscopy due to history of perforated diverticulitis. Patient denies any family history of colon cancer. Patient has bowel movements daily denies any blood. Patient currently denies any abdominal pain/nausea/vomiting/reflux. [facility] Medical History (Updated 01/31/22 @ 08:[address] Daniella Montes MD) Alcohol use Anxiety Depression Heartburn History of diverticulitis Smoker Wears glasses Home Medications duloxetine 60 mg capsule,delayed release 60 mg PO DAILY depression 12/02/21 [History Last Taken 12/01/21] ibuprofen 200 mg tablet 800 mg PO DAILY PRN Pain 12/02/21 [History Last Taken 12/01/21] varenicline 1 mg tablet 1 mg PO BID smoking cessation 12/02/21 [History Last Taken 12/01/21] hydroxyzine HCl 25 mg tablet 25 mg PO QHS sleep 01/26/22 [History Last Taken Unknown] Allergy/AdvReac Type Severity Reaction Status Date / Time naproxen [From Aleve] Allergy Severe Hives Verified 01/26/22 09:10 Social History (Updated 11/24/19 @ 14:01 by Bina NESS, PA) Smoking Status: Former smoker alcohol intake: current alcohol intake frequency: a few times a week Alcohol type: beer Past Medical/Surgical History Planned Operation Planned Operative Procedure/s: COLONOSCOPY Previous Hospitalizations/Surgeries HX Hospitalizations: Yes (11/2021 DIVERTICULITIS) Any Problems With Anesthesia: No You/Your Family Experience Fever (Hyperthermia) With Anes: No Cholinesterase deficiency: No Cardiovascular Hx Hypertension: No Respiratory Hx Sleep Apnea: No Hx Respiratory Tract Infection/Cold (presently): No Do You Snore Loudly (louder than talking or can be heard): No Do You Often Feel Tired/ Fatigued/ Sleepy [place]ring Daytime?: No Has Anyone Observed You Stop Breathing During Sleep?: No Result (for STOP score): Negative Smoking Status: Former smoker Neurological Does patient have nerve stimulator: No Allergies naproxen [From Aleve] Allergy (Severe, Verified 01/26/22 09:10) Hives Discharge Is Pt Admitted From a [facility], or a [facility]: No Who Could Help: FAMILY After D/C, Where Do you Plan to Go: Return Home Physical Exam Const alert, oriented x3 and no apparent distress HEENT normocephalic and head/scalp atraumatic Resp normal respiratory effort Cardio regular rate GI soft to palpation and non-tender; Negative for non-distended Palpation: Negative for guarding Extremity no clubbing, cyanosis or edema Neuro CN's II-XII intact bilaterally Psych mental status grossly normal Assessment & Plan Assessment/Plan (1) History of diverticulitis: Surgery Risks - Colonoscopy Risks Include but are not Limited To: Risks include but are not limited to: Bleeding, perforation requiring further surgery, inability to complete colonoscopy requiring barium enema.
[2022-01-31] MEDS: Lactated Ringers 1,000 ML 15 ML IV (08:45)
[2022-01-31 09:00] VITALS: BP 120/76; PULSE 69; RESP 18; TEMP 36.8; O2SAT 100; BMI 33.3
--- NOTE | 2022-01-31 10:32 | OP.CCLET_ITS ---
01/31/2022 Alec Clement Do Re : Colonoscopy procedure for Don Hathaway Dear Racquel This procedure was performed on Monday, January 31, 2022. My impressions and recommendations are as follows: Impressions : - Diverticulosis in the entire examined colon. - The examination was otherwise normal on direct and retroflexion views. - No specimens collected. Recommendations : - Discharge patient to home. - Resume previous diet. - Continue present medications. - Repeat colonoscopy at 45 y/o for screening purposes. My findings are described in the full procedure note, which is enclosed. If I can be of further assistance, please feel free to contact me at Doctor phone number(s): , Work: . Sincerely, MD Daniella Brunner MD 01/31/2022 10:31:52 AM This report has been signed electronically.
--- NOTE | 2022-01-31 10:32 | OP.COLON_ITS ---
Patient Name: Don Hathaway Procedure Date: 01/31/2022 9:24 AM Date of : 1985 Age: 36 Procedure: Colonoscopy Indications: Follow-up of diverticulitis Providers: Daniella Montes MD Medicines: Monitored Anesthesia Care Patient Profile: This is a 36 year old male. Last Colonoscopy: none. The patient's first colonoscopy is today. Complications: No immediate complications. Procedure: Pre-Anesthesia Assessment: - Prior to the procedure, a History and Physical was performed, and patient medications and allergies were reviewed. The patient's tolerance of previous anesthesia was also reviewed. The risks and benefits of the procedure and the sedation options and risks were discussed with the patient. All questions were answered, and informed consent was obtained. Prior Anticoagulants: The patient has taken no previous anticoagulant or antiplatelet agents. ASA Grade Assessment: Per anesthesia. After reviewing the risks and benefits, the patient was deemed in satisfactory condition to undergo the procedure. After I obtained informed consent, the scope was passed under direct vision. Throughout the procedure, the patient's blood pressure, pulse, and oxygen saturations were monitored continuously. The was introduced through the anus and advanced to the cecum, identified by the ileocecal valve--unable to intubate the cecum due to scope looping. The colonoscopy was performed with moderate difficulty due to significant looping. Successful completion of the procedure was aided by applying abdominal pressure. Scope In: 9:35:50 AM Scope Withdrawal Time 0 hours 7 minutes 35 seconds Scope Out: 10:25:42 AM Total Procedure Duration Time 0 hours 49 minutes 52 seconds Findings: The perianal and digital rectal examinations were normal. Multiple small-mouthed diverticula were found in the entire colon. The exam was otherwise without abnormality on direct and retroflexion views. Impression: - Diverticulosis in the entire examined colon. - The examination was otherwise normal on direct and retroflexion views. - No specimens collected. Recommendation: - Discharge patient to home. - Resume previous diet. - Continue present medications. - Repeat colonoscopy at 45 y/o for screening purposes. Procedure Code(s): --- Professional --- 13998, Colonoscopy, flexible; diagnostic, including collection of specimen(s) by brushing or washing, when performed (separate procedure) Diagnosis Code(s): --- Professional --- K57.32, Diverticulitis of large intestine without perforation or abscess without bleeding K57.30, Diverticulosis of large intestine without perforation or abscess without bleeding CPT copyright 2017 [employer]. All rights reserved. The codes documented in this report are preliminary and upon job placement counselor review may be revised to meet current compliance requirements. MD Daniella Brunner MD 01/31/2022 10:31:52 AM This report has been signed electronically. Number of Addenda: 0 Note Initiated On: 01/31/2022 9:24 AM
[2022-01-31 10:33] VITALS: BP 120/76; BP 131/72; PULSE 105; RESP 18; TEMP 36.4; O2SAT 98
[2022-01-31 10:40] VITALS: BP 120/76; BP 124/79; PULSE 73; RESP 16; O2SAT 99
[2022-01-31 10:45] VITALS: BP 119/73; BP 120/76; PULSE 66; RESP 16; O2SAT 100
[2022-01-31 10:47] VITALS: BP 113/76; BP 120/76; PULSE 59; RESP 16; TEMP 36.3; O2SAT 100
[2022-01-31 11:23] VITALS: BP 120/76
== END 2022-01-31 11:24 | disposition home or self-care (01) ==
LOC: EN 08:22 → AC 08:24
PROVIDERS: PCP Student in an Organized Health Care Education/Training Program; Referring Provider Student in an Organized Health Care Education/Training Program; Visit Provider Surgery
PROC: 0DJD8ZZ Inspection of Lower Intestinal Tract, Via Natural or Artificial Opening Endoscopic (ICD-10-PCS; CPT 45378; principal; 2022-01-31 09:40)
DX: K57.30 Diverticulosis of large intestine without perforation or abscess without bleeding (principal); Z87.891 Personal history of nicotine dependence; K57.32 Diverticulitis of large intestine without perforation or abscess without bleeding
CPT/HCPCS: 45378; J7120; J2405